=== PATIENT | male | born 1940 | race Two or more races ===

== ENCOUNTER 2024-10-26 02:45 | Inpatient (IN) | payer OTHER ==
[~2024-10-26] VITALS: Ht 167.6 cm; Wt 74.6 kg
[2024-10-26 03:10] VITALS: PULSE 107; RESP 14; O2SAT 96
[2024-10-26 03:11] LABS: Basophils # (auto) 0.1 10 ^3/uL (0-0.2); Basophils % (auto) 0.5 % (0.0-2.0); Eosinophils # (auto) 0 10 ^3/uL (0-0.8); Eosinophils % (auto) 0.2 % (0.0-7.0); Hematocrit 31.4 % (41.0-53.0); Hemoglobin 10.6 g/dL (13.5-17.5); Lymphocytes # (auto) 0.4 10 ^3/uL (0.4-5.4); Lymphocytes % (auto) 2.9 % (10.0-50.0); Mean Corpuscular Hemoglobin 31.3 pg (28.0-32.0); Mean Corpuscular Hgb Conc. 33.8 g/dL (32.0-36.0); Mean Corpuscular Volume 92.4 fL (80.0-100.0); Monocytes # (auto) 0.6 10 ^3/uL (0-1.3); Monocytes % (auto) 3.8 % (0.0-12.0); Neutrophils # (auto) 13.7 10 ^3/uL (1.6-8.6); Neutrophils % (auto) 92.6 % (37.0-80.0); Nucleated Red Blood Cells % 0.1 %; Platelet Count (auto) 77 10^3/uL (140-450); Red Cell Distribution Width 16.8 % (11.8-14.3); White Blood Cell 14.8 10^3/uL (4.4-10.8)
[2024-10-26 03:20] LABS: Alanine Aminotransferase 20 U/L (7-40); Anion Gap 10 (5-15); Calcium 9.2 mg/dL (8.7-10.4); Carbon Dioxide 22 mmol/L (20-31); Chloride 104 mmol/L (98-107); Potassium 3.6 mmol/L (3.5-5.1); Sodium 136 mmol/L (136-145)
[2024-10-26 03:21] LABS: Albumin 3.7 g/dL (3.2-4.8); Aspartate Aminotransferase 32 U/L (13-40); BUN/Creatinine Ratio 21.2 (10.0-20.0); Bilirubin, Total 0.9 mg/dL (0.2-1.0); Blood Urea Nitrogen 22 mg/dL (9-23); Total Protein 7.6 g/dL (5.7-8.2)
--- NOTE | 2024-10-26 03:23 | ED.PDOC ---
HPI Comments 84-year-old male who came to ER via EMS for chest pains. Patient does have history of liver cancer. States for the past hour, he has been experiencing sudden onset substernal chest pains, pressure, constant, unprovoked, nonradiating, 10/10 intensity, associated with shortness of breath. Upon arrival noted temperature of 102.1 F, with a blood pressure of 114/48 mmHg and a blood sugar of 127. Patient is saturating 97% on room air Chief Complaint: Chest Pain Time Seen by MD: 03:23 Reviewed Notes: [employer] Official Notes Allergies: Coded Allergies: NO KNOWN ALLERGIES (Unverified , 10/26/24) Information Source: Patient, Emergency Med Personnel Mode of Arrival: EMS Severity: Moderate Timing: Minutes Duration: Since onset Prehospital treatment: 12 Lead EKG, Accucheck Location: Substernal Radiation: No Radiation Quality: Pressure Onset: With Light Exertion Cardiac Risk Factors: HTN PE Risk Factors: None History of: Similar pain in past Associated Signs and Symptoms: SOB Past Medical History PAST MEDICAL HISTORY: Cancer Surgical History: Denies all surgeries Family History Family History: Reviewed,noncontributory to illness Social History Smoker: Non-Smoker Alcohol: Denies ETOH Use Drugs: Denies Drug Use Lives In: Home Constitutional: denies: chills, diaphoresis, fatigue, fever, malaise, sweats, weakness, others EENTM: denies: blurred vision, double vision, ear bleeding, ear discharge, ear drainage, ear pain, ear ringing, eye pain, eye redness, hearing loss, mouth pain, mouth swelling, nasal discharge, nose bleeding, nose congestion, nose pain, photophobia, tearing, throat pain, throat swelling, voice changes, others Respiratory: reports: SOB at rest, shortness of breath; denies: cough, hemoptysis, orthopnea, SOB with excertion, stridor, wheezing, others Cardiovascular: reports: chest pain; denies: dizzy spells, diaphoresis, Dyspnea on exertion, edema, irregular heart beat, left arm pain, lightheadedness, palpitations, PND, syncope, others Gastrointestinal: denies: abdomen distended, abdominal pain, blood streaked bowels, constipated, diarrhea, dysphagia, difficulty swallowing, hematemesis, melena, nausea, poor appetite, poor fluid intake, rectal bleeding, rectal pain, vomiting, others Genitourinary: denies: burning, dysuria, flank pain, frequency, hematuria, incontinence, penile discharge, penile sore, pain, testicle pain, testicle swelling, urgency, others Neurological: denies: dizziness, fainting, headache, left sided numbness, left sided weakness, numbness, paresthesia, pre-existing deficit, right sided numbness, right sided weakness, seizure, speech problems, tingling, tremors, weakness, others Musculoskeletal: denies: back pain, gout, joint pain, joint swelling, muscle pa in, muscle stiffness, neck pain, others Integumetry: denies: bruises, change in color, change in hair/nails, dryness, laceration, lesions, lumps, rash, wounds, others Allergic/Immunocompromised: denies: Difficulty Healing, Frequent Infections, Hives, Itching, others Hematologic/Lymphatic: denies: anemia, blood clots, easy bleeding, easy bruising, swollen glands, others Endocrine: denies: excessive hunger, excessive sweating, excessive thirst, excessive urination, flushing, intolerance to cold, intolerance to heat, unexplained weight gain, unexplained weight loss, others Psychiatric: denies: anxiety, bipolar disorder, depression, hopeless, panic disorder, schizophrenia, sleepless, suicidal, others Physical Exam General Appearance: No Apparent Distress, Normal HEENT: Normal ENT Inspection, Pharynx Normal, TMs Normal Neck: Full Range of Motion, Non-Tender, Normal, Normal Inspection Respiratory: Chest Non-Tender, Lungs Clear, No Accessory Muscle Use, No Respiratory Distress, Normal Breath Sounds Cardiovascular: No Edema, No JVD, No Murmur, No Gallop, Normal Peripheral Pulses, Regular Rate/Rhythm Breast Exam: Deferred Gastrointestinal: No Organomegaly, Non Tender, No Pulsatile Mass, Normal Bowel Sounds, Soft Genitalia: Deferred Pelvic: Deferred Rectal: Deferred Extremities: No calf tenderness, Normal capillary refill, Normal inspection, Normal range of motion, Non-tender, No pedal edema Musculoskeletal : Apperance: Normal Neurologic: Alert, 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 Was a procedure done?: No CP Differential Dx Differential Diagnosis: Angina, Anxiety / Panic Attack Differential Diagnosis: Angina, Chest Wall Pain, Costochondritis, Esophageal reflux/spasm, Gastritis, Myocardial Infarction, Pneumonia X-Ray, Labs, Meds, VS Vital Signs Date Time Temp Pulse Resp B/P (MAP) Pulse Ox O2 Delivery O2 Flow Rate FiO2 10/26/24 04:02 101.5 101.5 10/26/24 03:10 99.8 99.8 10/26/24 02:51 114 10/26/24 02:51 114 10/26/24 02:50 102.1 120 18 114/48 (70) 97 Lab Test 10/26/24 04:15 10/26/24 03:39 10/26/24 02:48 Range/Units Influenza Type A Antigen Pending Influenza Type B Antigen Pending SARS-CoV-2 Antigen (Rapid) Pending Lactic Acid Level Pending Troponin I High Sensitivity Pending 34 </=54 ng/L White Blood Count 14.8 H 4.4-10.8 10^3/uL Red Blood Count 3.40 L 4.5-5.90 10^6/uL Hemoglobin 10.6 L 13.5-17.5 g/dL Hematocrit 31.4 L 41.0-53.0 % Mean Corpuscular Volume 92.4 80.0-100.0 fL Mean Corpuscular Hemoglobin 31.3 28.0-32.0 pg Mean Corpuscular Hemoglobin Concent 33.8 32.0-36.0 g/dL Red Cell Distribution Width 16.8 H 11.8-14.3 % Platelet Count 77 L 140-450 10^3/uL Mean Platelet Volume 9.8 6.9-10.8 fL Neutrophils (%) (Auto) 92.6 H 37.0-80.0 % Lymphocytes (%) (Auto) 2.9 L 10.0-50.0 % Monocytes (%) (Auto) 3.8 0.0-12.0 % Eosinophils (%) (Auto) 0.2 0.0-7.0 % Basophils (%) (Auto) 0.5 0.0-2.0 % Neutrophils # (Auto) 13.7 H 1.6-8.6 10 ^3/uL Lymphocytes # (Auto) 0.4 0.4-5.4 10 ^3/uL Monocytes # (Auto) 0.6 0-1.3 10 ^3/uL Eosinophils # (Auto) 0 0-0.8 10 ^3/uL Basophils # (Auto) 0.1 0-0.2 10 ^3/uL Nucleated Red Blood Cells 0.1 % Prothrombin Time 11.4 9.3-11.8 sec Prothrombin Time INR 1.08 0.9-1.15 Activated Partial Thromboplast Time 25.1 24.5-34.5 SEC Sodium Level 136 136-145 mmol/L Potassium Level 3.6 3.5-5.1 mmol/L Chloride Level 104 98-107 mmol/L Carbon Dioxide Level 22 20-31 mmol/L Anion Gap 10 5-15 Blood Urea Nitrogen 22 9-23 mg/dL Creatinine 1.04 0.700-1.30 mg/dL Glomerular Filtration Rate Calc 70 >90 mL/min BUN/Creatinine Ratio 21.2 H 10.0-20.0 Serum Glucose 112 H 74-106 mg/dL Calcium Level 9.2 8.7-10.4 mg/dL Total Bilirubin 0.9 0.2-1.0 mg/dL Aspartate Amino Transferase (AST) 32 13-40 U/L Alanine Aminotransferase (ALT) 20 7-40 U/L Alkaline Phosphatase 344 H 46-116 U/L B-Type Natriuretic Peptide Pending Total Protein 7.6 5.7-8.2 g/dL Albumin 3.7 3.2-4.8 g/dL Time of 1ST Reevaluation: 03:20 Reevaluation 1ST: Unchanged Time of 2ND Reevaluation: 04:23 Reevaluation 2ND: Unchanged Patient Education/Counseling: Diagnosis, Treatment Family Education/Counseling: No Family Present Departure 1 Departure Time of Disposition: 04:23 Impression: Primary Impression: Pneumonia Additional Impression: Intermediate coronary syndrome Disposition: 09 ADMITTED INPATIENT Admit to: Med Surg Condition: Guarded Critical Care Note Critical Care Time?: Yes (35 min-critical care time only) Stability Stability form required: No Heart Score Heart Score: Heart Score Response (Comments) Value History Moderate Suspicious 1 EKG Normal 0 Age >65 2 Risk Factors 1 or 2 risk factors 1 Troponin Normal limit 0 Total 4 I personally scribed for OBEY CORREA MD ([email or web address]) on 10/26/24 at 03:23. Electronically submitted by Isaiah Hansen ([email or web address]). OBEY CORREA MD Oct 26, 2024 03:23
[2024-10-26 03:35] LABS: INR 1.08 (0.9-1.15); Partial Thromboplastin Time 25.1 SEC (24.5-34.5); Prothrombin Time 11.4 sec (9.3-11.8)
[2024-10-26 03:47] LABS: Alkaline Phosphatase 344 U/L (46-116); Glucose 112 mg/dL (74-106)
--- NOTE | 2024-10-26 04:24 | DVH ---
CHEST RADIOGRAPH Indication: fever, chest pain Technique: Single frontal view of the chest was obtained Comparison: None IMPRESSION: There are low lung volumes. Coarsened interstitial markings. Possible patchy airspace opacity in the right lower lung. No discrete pneumothorax.
[2024-10-26] MEDS: ACETAMINOPHEN 325 MG TAB PO ONE (05:06)
[2024-10-26] MEDS: cefTRIAXone 1GM/50ML D5W 50 ML IV ONE (05:07)
[2024-10-26 05:20] LABS: Rapid Influenza A Negative (Negative); Rapid Influenza B Negative (Negative)
[2024-10-26] MEDS: ASPirin 81 mg TAB PO ONE (05:26)
[2024-10-26 05:34] LABS: COVID19 ANTIGEN SOFIA FIA POSITIVE (NEGATIVE)
[2024-10-26] MEDS: AZITHROMYCIN 500MG/ 250ML 250 ML IV ONE ×2 (06:20→13:40)
[2024-10-26] MEDS: SODIUM CHLORIDE 0.9% 1,900 ML IV ONE ×2 (06:45→10:26)
[2024-10-26 07:33] LABS: Hematocrit 25.8 % (41.0-53.0); Hemoglobin 8.8 g/dL (13.5-17.5); Mean Corpuscular Hemoglobin 32.1 pg (28.0-32.0); Mean Corpuscular Hgb Conc. 34.1 g/dL (32.0-36.0); Mean Corpuscular Volume 94.2 fL (80.0-100.0); Platelet Count (auto) 67 10^3/uL (140-450); Red Blood Cells 2.74 10^6/uL (4.5-5.90); Red Cell Distribution Width 16.9 % (11.8-14.3); White Blood Cell 15.1 10^3/uL (4.4-10.8)
[2024-10-26] MEDS: ALBUTEROL SULF 2.5 MG/0.5ML(0.5%) NEB SOLN NEB ONE (07:35)
[2024-10-26 07:42] LABS: Alanine Aminotransferase 19 U/L (7-40); Anion Gap 11 (5-15); Aspartate Aminotransferase 39 U/L (13-40); BUN/Creatinine Ratio 19.8 (10.0-20.0); Carbon Dioxide 20 mmol/L (20-31); Chloride 105 mmol/L (98-107); Glucose 89 mg/dL (74-106)
[2024-10-26 07:43] LABS: Bilirubin, Total 0.8 mg/dL (0.2-1.0); Total Protein 6.4 g/dL (5.7-8.2)
[2024-10-26 07:51] LABS: Albumin 3.1 g/dL (3.2-4.8); Alkaline Phosphatase 300 U/L (46-116); Blood Urea Nitrogen 26 mg/dL (9-23); Calcium 8.7 mg/dL (8.7-10.4); Potassium 3.3 mmol/L (3.5-5.1); Sodium 136 mmol/L (136-145)
[2024-10-26 07:55] LABS: Lactic Acid w/Reflex 2.9 mmol/L (0.4-2.0)
[2024-10-26] MEDS: VANCOMYCIN 1GM/250ML KIT 250 ML IV ONE (07:55)
[2024-10-26 08:14] LABS: Basophils % (manual) 0 (0.0-2.0); Blast Cells 0; Metamyelocytes % 0; Myelocytes % 0; Promyelocytes % 0; Reactive Lymphocytes 0
[2024-10-26 08:50] LABS: Band Neutrophils % (manual) 2; Eosinophils % (manual) 1 (0-7); Lymphocytes % (manual) 6 (10.0-50.0); Monocytes % (manual) 10 (0-12); Platelet Estimate Decreased
[2024-10-26 09:53] LABS: Lactic Acid w/Reflex 3.8 mmol/L (0.4-2.0)
[2024-10-26] MEDS: PIPERACILLIN-TAZOB 3.375GM 100 ML IV ONE (10:20)
[2024-10-26] MEDS: NOREPINEPHRINE 8 MG/250ML KIT 250 ML IV SCH (11:21)
[2024-10-26 11:50] LABS: Urine Bacteria None Seen /hpf (None Seen)
[2024-10-26 11:53] VITALS: PULSE 83; RESP 20; O2SAT 98
[2024-10-26 12:10] LABS: Urine Blood Negative /uL (Negative); Urine Clarity Clear (Clear); Urine Color Light-Yellow (Yellow); Urine Protein, UAD Negative (Negative); Urine Urobilinogen Normal (Negative); Urine WBC <1 /hpf (0 - 3)
[2024-10-26] MEDS ORDERED: NITROGLYCERIN 0.4 MG SL TAB SL PRN (13:15)
[2024-10-26] MEDS ORDERED: ONDANSETRON HCL 4 MG/2 ML VIAL IV PRN (13:15)
[2024-10-26] MEDS ORDERED: REMDESIVIR PER PHARMACY 0 ML IV SCH (13:30)
--- NOTE | 2024-10-26 13:37 | DVHHP2 ---
History of Present Illness History of Present Illness 84-year-old male PMH of 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 Patient had sudden onset right upper quadrant/right lower ribs pain, associated with shortness of Breath and subjective fevers. Denies sick contacts. He had chemo 3 months ago and was told by oncologist in [place] region that the cancer is very advanced. Unable to elicit from family what the plan is with the treatment, and they also want full code. In ED, Upon arrival noted temperature of 102.1 F, with a blood pressure of 114/48 mmHg and a blood sugar of 127. Patient is saturating 97% on room air. Patient is hypotensive and multiple attempts with sepsis fluids unable to normalize pressure. Levophed started. No sternal chest pain, nausea and vomiting, diarrhea, constipation, shortness of breath. Review of Systems Review of Systems As per HPI Allergies: Coded Allergies: NO KNOWN ALLERGIES (Unverified , 10/26/24) Medications Current Medications Medications Dose Ordered Sig/Liat Route Start Time Stop Time Status Last Admin Dose Admin Norepinephrine Bitartrate 250 ml @ 3.75 mls/hr Q24H IV 10/26/24 10:00 10/26/24 11:21 3.75 MLS/HR Acetaminophen/ Hydrocodone Bitart 1 tab Q4HP PRN PO 10/26/24 13:15 UNV Ondansetron HCl 4 mg Q4HP PRN IV 10/26/24 13:15 UNV Acetaminophen 650 mg Q6HP PRN PO 10/26/24 13:15 UNV Nitroglycerin 0.4 mg Q5MINP PRN SL 10/26/24 13:15 UNV Cefepime HCl 50 ml @ 12.5 mls/hr Q8HR IV 10/26/24 14:00 UNV Metronidazole 500 mg Q8HR PO 10/26/24 14:00 UNV Azithromycin 250 ml @ 125 mls/hr DAILY IV 10/27/24 10:00 UNV Hydrocortisone Sodium Succinate 100 mg Q12HR IV 10/26/24 22:00 UNV Exam Vital Signs Vital Signs Date Time Temp Pulse Resp B/P (MAP) Pulse Ox O2 Delivery O2 Flow Rate FiO2 10/26/24 12:35 88/31 10/26/24 12:00 81 10/26/24 12:00 20 97 12/22/24 11:53 Room Air* 0 21 10/26/24 08:00 97.8 97.8 Exam GEN: Healthy appearing, well-developed, NAD. HEENT: NC/AT; dry mucous membranes CV: RRR, no m/r/g. LUNGS: Bibasilar rales ABD: Epigastric/RUQ pain tender to palpation. Soft, hypoactive bowel sound, no masses or organomegaly. EXT: skin Warm, well perfused. no rashes. No clubbing, cyanosis, or edema. NEURO: Ambulating with no limitations. No focal deficits. Labs/Xrays Labs Test 10/26/24 11:35 10/26/24 10:37 10/26/24 06:57 10/26/24 04:15 Range/Units Urine Color Light-yellow Yellow Urine Clarity Clear Clear Urine pH 6.0 5.0-9.0 Urine Specific [place] 1.010 1.001-1.035 Urine Protein Negative Negative Urine Ketones Negative Negative Urine Blood Negative Negative /uL Urine Nitrite Negative Negative Urine Bilirubin Negative Negative Urine Urobilinogen Normal Negative mg/dL Urine Leukocyte Esterase Negative Negative /uL Urine RBC 1 0 - 3 /hpf Urine WBC <1 0 - 3 /hpf Urine Squamous Epithelial Cells None seen <5 /hpf Urine Bacteria None seen None Seen /hpf Urine Glucose Normal Normal mg/dL Lactic Acid Level 4.0 *H 0.4-2.0 mmol/L White Blood Count 15.1 H 4.4-10.8 10^3/uL Red Blood Count 2.74 L 4.5-5.90 10^6/uL Hemoglobin 8.8 #L 13.5-17.5 g/dL Hematocrit 25.8 #L 41.0-53.0 % Mean Corpuscular Volume 94.2 80.0-100.0 fL Mean Corpuscular Hemoglobin 32.1 H 28.0-32.0 pg Mean Corpuscular Hemoglobin Concent 34.1 32.0-36.0 g/dL Red Cell Distribution Width 16.9 H 11.8-14.3 % Platelet Count 67 L 140-450 10^3/uL Mean Platelet Volume 9.5 6.9-10.8 fL Neutrophils (%) (Auto) 37.0-80.0 % Lymphocytes (%) (Auto) 10.0-50.0 % Monocytes (%) (Auto) 0.0-12.0 % Basophils (%) (Auto) 0.0-2.0 % Neutrophils # (Auto) 1.6-8.6 10 ^3/uL Lymphocytes # (Auto) 0.4-5.4 10 ^3/uL Monocytes # (Auto) 0-1.3 10 ^3/uL Differential Total Cells Counted 100.0 100 Neutrophils % (Manual) 81 H 37.0-80.0 Band Neutrophils % (Manual) 2 Lymphocytes % (Manual) 6 L 10.0-50.0 Monocytes % (Manual) 10 0-12 Eosinophils % (Manual) 1 0-7 Basophils % (Manual) 0 0.0-2.0 Metamyelocytes % (manual) 0 Myelocytes % (Manual) 0 Promyelocytes % (Manual) 0 Blast Cells % (Manual) 0 Reactive Lymphocytes 0 Platelet Estimate Decreased Sodium Level 136 136-145 mmol/L Potassium Level 3.3 L 3.5-5.1 mmol/L Chloride Level 105 98-107 mmol/L Carbon Dioxide Level 20 20-31 mmol/L Anion Gap 11 5-15 Blood Urea Nitrogen 26 H 9-23 mg/dL Creatinine 1.31 H 0.700-1.30 mg/dL Glomerular Filtration Rate Calc 53 >90 mL/min BUN/Creatinine Ratio 19.8 10.0-20.0 Serum Glucose 89 74-106 mg/dL Calcium Level 8.7 8.7-10.4 mg/dL Total Bilirubin 0.8 0.2-1.0 mg/dL Aspartate Amino Transferase (AST) 39 13-40 U/L Alanine Aminotransferase (ALT) 19 7-40 U/L Alkaline Phosphatase 300 H 46-116 U/L Total Protein 6.4 5.7-8.2 g/dL Albumin 3.1 L 3.2-4.8 g/dL Influenza Type A Antigen Negative Negative Influenza Type B Antigen Negative Negative SARS-CoV-2 Antigen (Rapid) Positive *A NEGATIVE Test 10/26/24 03:39 10/26/24 02:48 Range/Units Troponin I High Sensitivity 33 </=54 ng/L Eosinophils (%) (Auto) 0.2 0.0-7.0 % Eosinophils # (Auto) 0 0-0.8 10 ^3/uL Basophils # (Auto) 0.1 0-0.2 10 ^3/uL Nucleated Red Blood Cells 0.1 % Prothrombin Time 11.4 9.3-11.8 sec Prothrombin Time INR 1.08 0.9-1.15 Activated Partial Thromboplast Time 25.1 24.5-34.5 SEC B-Type Natriuretic Peptide 88.00 0-100 pg/mL Assessment/Plan Assessment/Plan Problem list #Septic shock due to COVID pneumonia- COVID positive, CXR with RLL PNA.- starting on broad-spectrum antibiotics vanc, cefepime, p.o. Flagyl, azithromycin. Status post sepsis fluids. Starting hydrocortisone for shock guidelines. #COVID pneumonia - remdesivir, already on steroids for shock #Leukocytosis, neutrophilia-WBC 15.1 and neutrophils 92% high #Lactic acidosis -lactic 2.9 trend up to 4.0 #Hypoalbuminemia - albumin 3.1 #ROSY due to vmn-creatinine 1.04 trend to 1.31 #Anemia-10.6 trend 8.8 type and screen #Thrombocytopenia-platelets 67 likely to sepsis NEURO: - A&O x3 - RASS score +1 CARDIOVASCULAR: - normal sinus rhythm, hypotensive on Levophed 6 PULMONARY: - On room air, bibasilar rales. - COVID pneumonia, see ID GI: #Hypoalbuminemia - albumin 3.1 /renal #ROSY due to vmn-creatinine 1.04 trend to 1.31 - P.r.n. bladder scan if needed - Accurate I&Os HEME: #Anemia-10.6 trend 8.8 type and screen #Thrombocytopenia-platelets 67 likely to sepsis ENDOCRINE: -No history of diabetes, but currently on Steroids, we will do SSI, Accu-Cheks a.c. HS Metabolic #Hypokalemia, repeat and replete as needed - Lactic acidosis, see ID ID: #Septic shock due to COVID pneumonia- COVID positive, CXR with RLL PNA.- starting on broad-spectrum antibiotics vanc, cefepime, p.o. Flagyl, azithromycin. Status post sepsis fluids. Starting hydrocortisone for shock guidelines. 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 stabilized LINES/DRAINS/ACCESS: - No oxygenation equipment -IV access: See nursing record - On Levophed - Hill catheter: Pending bladder scan Bowel regimen: N/a GI ppx: IV Protonix daily DVT ppx: Holding chemical DVT prophylaxis due to thrombocytopenia, SCDs DIET: Regular diet CODE STATUS: Full code - time spent in advanced care planning was 26 mins Critical Care time >35min Attempt R IJ CVC failed - unable to threat wire without resistance Disposition: Critical care ICU Plan discussed with: Patient My Orders Orders - THEO PEPE MD Procedure Category Date Status Time Admit ADMIT 10/26/24 Transmitted 13:01 Code Status CODE 10/26/24 Transmitted 13:01 Hydrocodone-Acet PHA 10/26/24 Logged 5/325mg Tab ([place] 13:15 Ondansetron Hcl PHA 10/26/24 Logged (Zofran) 13:15 Complete Blood Count LAB 10/27/24 Verified 04:00 Comprehensive LAB 10/27/24 Verified Metabolic Panel 04:00 Acetaminophen Tablet PHA 10/26/24 Logged (Tylenol Tablet) 13:15 Maintain Bed Rest [facility] 10/26/24 In Process 13:01 Sequential [facility] 10/26/24 In Process Compression Device Nitroglycerin [facility] 10/26/24 Logged Sublingual (Ntrostat 13:15 Stat Ekg For Chest [facility] 10/26/24 In Process Pain 13:01 Notify Of Changes [facility] 10/26/24 In Process From Base 13:01 Belt Buckle Maker For [facility] 10/26/24 In Process 24 Hours 13:01 Emergency Dysrhythmia [facility] 10/26/24 In Process Protocol 13:01 Rhythm Strips Once [facility] 10/26/24 In Process Every Shift 13:01 Oxygen By Nasal RT 10/26/24 Transmitted Cannula 13:01 Vancomycin Per [facility] 10/26/24 In Process Pharmacy Protoc 13:01 Cefepime 1gm/ 50ml [facility] 10/26/24 Logged (Maxipime 1gm/50ml) 14:00 Metronidazole Tablet [facility] 10/26/24 Logged (Flagyl Tablet) 14:00 Azithromycin 500mg/ [facility] 10/27/24 Logged 250ml (Zithromax 50 10:00 Azithromycin 500mg/ PH[facility] 10/26/24 Logged 250ml (Zithromax 50 13:15 Hydrocortisone PHA 10/26/24 Logged Succinate Inj 22:00 Hydrocortisone PHA 10/26/24 Logged Succinate Inj 13:15 Ct Ab Pel Wo Con-No CT 10/26/24 Verified Oral Or Iv 13:13 Date of Service: Oct 26, 2024 Billing Provider: THEO PEPE MD Common Visit Codes: 74659-LESPTOKS CARE-EACH +30MIN Secondary Visit Codes: 95294-[id number] CARE PLAN 30 MINUTES THEO PEPE MD Oct 26, 2024 13:37
[2024-10-26] MEDS: HYDROCORTISONE SOD SUCC 100 MG/2ML INJ VIAL IV ONE (13:38)
[2024-10-26 14:33] LABS: Magnesium 1.7 mg/dL (1.6-2.6)
[2024-10-26 14:41] LABS: Lactic Acid w/Reflex 2.9 mmol/L (0.4-2.0)
[2024-10-26 14:43] LABS: CRP High Sensitivity 7.82 mg/dL (<1.0)
[2024-10-26 15:26] LABS: Thyroid Stimulating Hormone 1.15 uIU/mL (0.55-4.78)
[2024-10-26] MEDS: metroNIDAZOLE 500 MG TAB PO SCH (16:09)
[2024-10-26] MEDS: CEFEPIME 1GM/ 50ML 50 ML IV SCH (16:09)
[2024-10-26] MEDS ORDERED: VANCOMYCIN PER PHARMACY 0 MG IV SCH (16:45)
--- NOTE | 2024-10-26 18:37 | DVH ---
Exam: CT CT AB PEL WO CON-NO ORAL OR IV History: septic shock, abdominal pain, hx panc/liver CA Comparison Study: None available at time of dictation. TECHNIQUE: Multidetector CT of the and pelvis with contrast. Axial, coronal and sagittal multiplanar reformats were obtained from the axial data set by the technologist. Radiation Dose Information: CT Dose: CTDI volume is 11.88 mGy. Dose-length product is 663.95 mGy*cm FINDINGS: Small bilateral pleural effusions with basilar ground-glass opacities and right basilar consolidatio n. Heart size is within normal limits. Multiple partially calcified hepatic lesions are noted largest measuring up to 3 x 5.5 cm within the left hepatic lobe. 2.9 x 2.5 cm hypodense right hepatic lobe lesion which measures as fluid. The gallbladder is not definitely visualized. There appears to be tortuosity of the common bile duct with the common bile duct measuring up to 1.5 cm distally. Spleen, and adrenal glands unremarkable. The pancreas appears unremarkable. Kidneys, ureters and urinary bladder unremarkable. The prostate is not well-visualized. Mild gastric wall thickening. Small bowel loops unremarkable. Appendix is not definitely visualized. Moderate to large amount of fecal material within the colon. 0.5 cm linear density within the transve rse colon. Correlate for ingested material versus possible foreign body. Trace ascites. No evidence of intraperitoneal free air. No evidence of aortic aneurysm. Lres-vd-ogvyalxn atherosclerotic calcification of the aorta and bila teral iliacs. Tiny fat containing umbilical hernia. Small fat containing right ventral upper abdominal hernia with a more inferior small bowel containing hernia with no evidence of obstruction. Small to moderate righ t with small fat containing inguinal hernias. Mild pelvic wall soft tissue edema. Diffuse demineraliz ation with multilevel severe degenerative changes of the lumbar spine. Multilevel anterior bridging o steophytes of the visualized thoracic and lumbar spine. No destructive osseous lesions are noted. IMPRESSION: Small bilateral pleural effusion with bibasilar atelectasis and pneumonia. Trace ascites. 2.9 cm right hepatic lobe cystic lesion with multiple partially calcified hepatic lesions, largest me asuring up to 5.5 cm in maximum diameter. Dilatation of the common bile duct up to 1.5 cm with no choledocholithiasis on CT. No obvious pancre atic head mass and no pancreatic ductal dilatation. Constipation. Appendix is not well-visualized. Without visualization of the appendix, can not exclude acute appendi citis. Mild wall thickening of the stomach. Correlate for gastritis. Right paramedian ventral upper abdominal small hernia containing segment of small bowel without evide nce of obstruction. Additional findings as above.
[2024-10-26] MEDS: REMDESIVIR 200mg in NS 210mL LOADING DOSE ADULT IV ONE (18:52)
[2024-10-26 19:45] VITALS: PULSE 79; RESP 18; O2SAT 97
[2024-10-26] MEDS: ALBUMIN 5% 250 ML IV ONE (21:04)
[2024-10-26] MEDS: HYDROCORTISONE SOD SUCC 100 MG/2ML INJ VIAL IV SCH (22:08)
--- NOTE | 2024-10-27 04:01 | ECG ---
[facility] Test Date: 2024-10-26 Test Time: 02:51:36 Pat Name: EBER EASON Department: ER Room: 0208T Gender: M [employer]: IQRA : 1940 Requested By: OBEY CORREA Order Number: [id number] Reading MD: Aureliano Landry Measurements Intervals [place] Rate: 114 P: 25 HI: 126 QRS: 5 QRSD: 150 T: 26 QT: 337 QTc: 465 Interpretive Statements Sinus tachycardia Right bundle branch block Electronically Signed On 10-28-2024 13:05:49 PST by Aureliano Landry Please click the below link to view image of tracing.
[2024-10-27 07:46] VITALS: RESP 8
[2024-10-27] MEDS: AZITHROMYCIN 500MG/ 250ML 250 ML IV SCH (08:49)
[2024-10-27 08:55] LABS: Basophils # (auto) 0.1 10 ^3/uL (0-0.2); Eosinophils # (auto) 0 10 ^3/uL (0-0.8); Lymphocytes # (auto) 0.6 10 ^3/uL (0.4-5.4); Lymphocytes % (auto) 3.2 % (10.0-50.0); Mean Corpuscular Volume 94.6 fL (80.0-100.0); Platelet Count (auto) 53 10^3/uL (140-450)
[2024-10-27 08:59] LABS: Basophils % (auto) 0.3 % (0.0-2.0); Eosinophils % (auto) 0.2 % (0.0-7.0); Hematocrit 26.5 % (41.0-53.0); Mean Corpuscular Hgb Conc. 33.9 g/dL (32.0-36.0); Monocytes # (auto) 0.5 10 ^3/uL (0-1.3); Monocytes % (auto) 2.8 % (0.0-12.0); Neutrophils % (auto) 93.5 % (37.0-80.0); Red Cell Distribution Width 16.7 % (11.8-14.3); White Blood Cell 18.2 10^3/uL (4.4-10.8)
[2024-10-27 09:09] LABS: Alanine Aminotransferase 19 U/L (7-40); Anion Gap 8 (5-15); Aspartate Aminotransferase 23 U/L (13-40); BUN/Creatinine Ratio 27.9 (10.0-20.0); Bilirubin, Total 0.4 mg/dL (0.2-1.0); Calcium 8.9 mg/dL (8.7-10.4); Carbon Dioxide 21 mmol/L (20-31); Sodium 140 mmol/L (136-145)
[2024-10-27 09:10] LABS: Total Protein 5.9 g/dL (5.7-8.2)
[2024-10-27 09:11] LABS: Albumin 2.9 g/dL (3.2-4.8); Alkaline Phosphatase 225 U/L (46-116); Blood Urea Nitrogen 24 mg/dL (9-23); Chloride 111 mmol/L (98-107); Glucose 141 mg/dL (74-106); Potassium 2.7 mmol/L (3.5-5.1)
[2024-10-27] MEDS: ZINC SULFATE 220mg CAP or TAB PO SCH (09:14)
[2024-10-27] MEDS: VANCOMYCIN 500mg/100mL 100 ML IV SCH (10:40)
[2024-10-27] MEDS: SOD CHL 0.9%/ KCL 40MEQ 1,000 ML IV ONE (11:59)
[2024-10-27] MEDS: ACETAMINOPHEN 325 MG TAB PO PRN (12:18)
--- NOTE | 2024-10-27 12:42 | DVHPN2 ---
Subjective Patient reports that his symptoms have improved. Reviewed: Care Plan, H&P, Labs, Medications Changes from previous H/P or p: No Changes General: Per HPI Objective Vitals Vital Signs Date Time Temp Pulse Resp B/P (MAP) Pulse Ox O2 Delivery O2 Flow Rate FiO2 10/27/24 12:11 82 10/27/24 11:00 18 101/42 (61) 97 10/27/24 08:00 97.9 97.9 10/27/24 07:46 Room Air* 0 21 Intake/Output Intake and Output 10/27/24 07:00 Intake Total 5286.875 ml Balance 5286.875 ml Intake IV Total 5286.875 ml General Appearance: Alert, Oriented X3, Cooperative, mild distress HEENT: Atraumatic, PERRLA Lungs: Clear to auscultation, Normal air movement Cardiovascular: Normal S1, Normal S2 Musculoskeletal: Normal sensory function, Normal motor function Neuro: Normal gait, Normal speech Psych/Mental Status: Mental status NL, Mood NL Medications Current Medications Medications Dose Ordered Sig/Liat Route Start Time Stop Time Status Last Admin Dose Admin Norepinephrine Bitartrate 250 ml @ 3.75 mls/hr Q24H IV 10/26/24 10:00 10/26/24 11:21 3.75 MLS/HR Acetaminophen/ Hydrocodone Bitart 1 tab Q4HP PRN PO 10/26/24 13:15 Ondansetron HCl 4 mg Q4HP PRN IV 10/26/24 13:15 Acetaminophen 650 mg Q6HP PRN PO 10/26/24 13:15 10/27/24 12:18 650 MG Nitroglycerin 0.4 mg Q5MINP PRN SL 10/26/24 13:15 Cefepime HCl 50 ml @ 12.5 mls/hr Q24H IV 10/26/24 14:00 10/26/24 16:09 12.5 MLS/HR Metronidazole 500 mg Q8HR PO 10/26/24 14:00 10/27/24 06:13 500 MG Azithromycin 250 ml @ 125 mls/hr DAILY IV 10/27/24 10:00 10/27/24 08:49 125 MLS/HR Hydrocortisone Sodium Succinate 100 mg Q12HR IV 10/26/24 22:00 10/27/24 09:15 100 MG Zinc Sulfate 220 mg DAILY PO 10/27/24 10:00 10/27/24 09:14 220 MG Remdesivir 0 ml @ 0 mls/hr PER PHARMACY IV 10/26/24 13:30 10/29/24 13:29 Remdesivir 100 mg/ Sodium Chloride 250 ml @ 250 mls/hr DAILY@1500 IV 10/27/24 15:00 10/28/24 15:59 Vancomycin HCl 0 ml @ 0 mls/hr UD IV 10/26/24 16:45 Vancomycin HCl 100 ml @ 200 mls/hr Q12H IV 10/27/24 11:00 10/27/24 10:40 200 MLS/HR Laboratory Results Laboratory Tests 10/27/24 08:42 Chemistry Test 10/26/24 13:51 10/27/24 08:42 Magnesium Level 1.7 mg/dL (1.6-2.6) Albumin 2.9 g/dL (3.2-4.8) L Calcium Level 8.9 mg/dL (8.7-10.4) Total Protein 5.9 g/dL (5.7-8.2) Coagulation Test 10/26/24 13:51 D-Dimer, Quantitative 2.43 mg/L FEU (0.0-0.49) H LFT Test 10/27/24 08:42 Alanine Aminotransferase (ALT) 19 U/L (7-40) Alkaline Phosphatase 225 U/L (46-116) H Aspartate Amino Transferase (AST) 23 U/L (13-40) Total Bilirubin 0.4 mg/dL (0.2-1.0) HgA1c, TSH Test 10/26/24 13:51 Thyroid Stimulating Hormone (TSH) 1.15 uIU/mL (0.55-4.78) Urinalysis Test 10/26/24 11:35 Urine Color Light-yellow (Yellow) Urine Clarity Clear (Clear) Urine pH 6.0 (5.0-9.0) Urine Specific [place] 1.010 (1.001-1.035) Urine Protein Negative (Negative) Urine Ketones Negative (Negative) Urine Blood Negative /uL (Negative) Urine Nitrite Negative (Negative) Urine Bilirubin Negative (Negative) Urine Urobilinogen Normal mg/dL (Negative) Urine Leukocyte Esterase Negative /uL (Negative) Urine RBC 1 /hpf (0 - 3) Urine WBC <1 /hpf (0 - 3) Urine Squamous Epithelial Cells None seen /hpf (<5) Urine Bacteria None seen /hpf (None Seen) Urine Glucose Normal mg/dL (Normal) Microbiology Microbiology Date/Time Source Procedure Growth Status 10/26/24 03:39 Blood Blood Culture - Preliminary NO GROWTH AFTER 24 HOURS OF INCUBATION. Resulted Labs and/or images reviewed: Labs reviewed by me, Image(s) reviewed by me Assessment/Plan Assessment/Plan Impression: -COVID-19 -metastatic pancreatic cancer -hypokalemia -cachexia -probable sepsis -hypoalbuminemia -hypokalemia Plan: -patient off of vasopressor therapy. Patient reports that clinically he is feeling better. Patient on room air. -oxygen saturation 96%. Stop remdesivir, continue steroids -continue antibiotic therapy with Flagyl, vancomycin, cefepime -potassium replacement -gentle IV hydration -long discussion made with the patient and daughter who was bedside. If patient has clinical improvement by tomorrow, plans for discharge with recommendations to follow up with PCP back in the [place] area once he is done visiting in this area. -repeat labs in a.m. -transferred to telemetry Total time spent with patient discussing and formulating plan of care: 35 minutes. This medical document was created using an electronic medical record system with [employer] dictation system. Although this document has been carefully reviewed, there may still be some phonetic and typographical errors. These areas are purely typographical due to imperfections of the software programs, and do not reflect any compromise in the patient's medical care. Plan discussed with: Patient, Other (RN) My Orders Orders - COURTNEY RIVERA NP Procedure Category Date Status Time Sod Chl 0.9%/ Kcl PHA 10/27/24 In Process 40meq 12:00 Transfer Orders XFER 10/27/24 Transmitted 12:19 Date of Service: Oct 27, 2024 Billing Provider: COURTNEY RIVERA NP Common Visit Codes: [id number] INP/OBS CARE(HIGH) COURTNEY RIVERA NP Oct 27, 2024 12:42
--- NOTE | 2024-10-27 13:59 | DVH ---
Bilateral lower extremity venous Doppler INDICATION: DVT TECHNIQUE: Duplex venous sonography was performed with real-time and flow sensitive images submitted for evaluation. FINDINGS: Normal phasic venous flow. Veins are fully compressible. No filling defects. IMPRESSION: 1. No evidence of deep vein thrombosis. 2. Incidental note made of a complex Leonard's cyst in the right popliteal fossa measuring 2.4 x 2 x 1 cm
[2024-10-27] MEDS ORDERED: REMDESIVIR 100mg in NS 230mL (3 DAY REGIMEN) IV SCH (15:00)
[2024-10-27 17:50] VITALS: BP 107/66; PULSE 97; RESP 18; TEMP 97.6; O2SAT 96
[2024-10-27 20:00] VITALS: PULSE 83; O2SAT 97
[2024-10-27 21:00] VITALS: BP 92/45; PULSE 74; RESP 17; TEMP 98.5; O2SAT 97
[2024-10-28] VITALS (8 sets, daily range): BP systolic 96–120; BP diastolic 45–77; PULSE 69–86; RESP 15–18; TEMP 97.3–98.3; O2SAT 97–99
[2024-10-28 06:17] LABS: Sodium 139 mmol/L (136-145)
[2024-10-28 06:18] LABS: Anion Gap 7 (5-15); Calcium 9.1 mg/dL (8.7-10.4); Carbon Dioxide 21 mmol/L (20-31)
[2024-10-28 06:23] LABS: BUN/Creatinine Ratio 28.4 (10.0-20.0); Blood Urea Nitrogen 23 mg/dL (9-23)
[2024-10-28 06:24] LABS: Magnesium 1.7 mg/dL (1.6-2.6)
[2024-10-28 06:26] LABS: Chloride 111 mmol/L (98-107); Glucose 132 mg/dL (74-106); Potassium 3.1 mmol/L (3.5-5.1)
[2024-10-28] MEDS ORDERED: MIRA50TA PO (11:21)
[2024-10-28] MEDS ORDERED: SIME80CH49 PO (11:23)
[2024-10-28] MEDS ORDERED: PROC10TA6 PO (11:23)
[2024-10-28] MEDS ORDERED: OMEP20TA PO (11:23)
[2024-10-28] MEDS ORDERED: ACET120S38 PO (11:25)
[2024-10-29] VITALS (7 sets, daily range): BP systolic 90–113; BP diastolic 42–57; PULSE 73–77; RESP 15–20; TEMP 97.6–97.8; O2SAT 95–99
[2024-10-29 07:21] LABS: Anion Gap 8 (5-15); Sodium 139 mmol/L (136-145)
[2024-10-29 07:26] LABS: BUN/Creatinine Ratio 27.3 (10.0-20.0)
[2024-10-29 07:27] LABS: Blood Urea Nitrogen 24 mg/dL (9-23); Calcium 7.3 mg/dL (8.7-10.4); Carbon Dioxide 20 mmol/L (20-31); Chloride 111 mmol/L (98-107); Glucose 157 mg/dL (74-106); Potassium 2.9 mmol/L (3.5-5.1)
[2024-10-29] MEDS: POTASSIUM CHL 20MEQ/100ML 100 ML IV SCH (12:14)
[2024-10-29] MEDS: HYDROcodone-ACET 5/325MG TAB PO PRN (15:18)
[2024-10-29 15:47] LABS: Sodium 140 mmol/L (136-145)
[2024-10-29 15:48] LABS: Anion Gap 8 (5-15); Carbon Dioxide 22 mmol/L (20-31)
[2024-10-29 15:49] LABS: Calcium 8.9 mg/dL (8.7-10.4)
[2024-10-29 15:54] LABS: BUN/Creatinine Ratio 27.8 (10.0-20.0)
[2024-10-29 15:57] LABS: Blood Urea Nitrogen 25 mg/dL (9-23); Chloride 110 mmol/L (98-107); Glucose 137 mg/dL (74-106); Potassium 3.3 mmol/L (3.5-5.1)
--- NOTE | 2024-10-29 19:03 | DVHPN2 ---
Subjective on room air, stable, persistent hypokalemia, will pend today discharge and replete aggresively Reviewed: Care Plan, H&P, Labs, Medications Changes from previous H/P or p: No Changes General: Per HPI Objective Vitals Vital Signs Date Time Temp Pulse Resp B/P (MAP) Pulse Ox O2 Delivery O2 Flow Rate FiO2 10/29/24 17:00 97.7 73 18 111/57 (75) 99 97.7 10/29/24 08:00 Room Air* 0 21 Intake/Output Intake and Output 10/29/24 03:59 Intake Total 2272 ml Output Total 302 ml Balance 1970 ml Intake Oral 2022 ml IV Total 250 ml Output Urine Total 300 ml Stool Total 2 ml # Voids 1 General Appearance: Alert, Oriented X3, Cooperative, mild distress HEENT: Atraumatic, PERRLA Lungs: Clear to auscultation, Normal air movement Cardiovascular: Normal S1, Normal S2 Musculoskeletal: Normal sensory function, Normal motor function Neuro: Normal gait, Normal speech Psych/Mental Status: Mental status NL, Mood NL Medications Current Medications Medications Dose Ordered Sig/Liat Route Start Time Stop Time Status Last Admin Dose Admin Acetaminophen/ Hydrocodone Bitart 1 tab Q4HP PRN PO 10/26/24 13:15 10/29/24 15:18 1 TAB Ondansetron HCl 4 mg Q4HP PRN IV 10/26/24 13:15 Acetaminophen 650 mg Q6HP PRN PO 10/26/24 13:15 10/29/24 13:06 650 MG Nitroglycerin 0.4 mg Q5MINP PRN SL 10/26/24 13:15 Cefepime HCl 50 ml @ 12.5 mls/hr Q24H IV 10/26/24 14:00 10/29/24 14:55 12.5 MLS/HR Metronidazole 500 mg Q8HR PO 10/26/24 14:00 10/29/24 14:42 500 MG Hydrocortisone Sodium Succinate 100 mg Q12HR IV 10/26/24 22:00 10/29/24 10:43 100 MG Zinc Sulfate 220 mg DAILY PO 10/27/24 10:00 10/29/24 10:43 220 MG Vancomycin HCl 0 ml @ 0 mls/hr UD IV 10/26/24 16:45 Laboratory Results Laboratory Tests 10/27/24 08:42 10/29/24 15:03 Chemistry Test 10/29/24 06:46 10/29/24 15:03 Calcium Level 7.3 mg/dL (8.7-10.4) L 8.9 mg/dL (8.7-10.4) Urinalysis Test 10/26/24 11:35 Urine Color Light-yellow (Yellow) Urine Clarity Clear (Clear) Urine pH 6.0 (5.0-9.0) Urine Specific [place] 1.010 (1.001-1.035) Urine Protein Negative (Negative) Urine Ketones Negative (Negative) Urine Blood Negative /uL (Negative) Urine Nitrite Negative (Negative) Urine Bilirubin Negative (Negative) Urine Urobilinogen Normal mg/dL (Negative) Urine Leukocyte Esterase Negative /uL (Negative) Urine RBC 1 /hpf (0 - 3) Urine WBC <1 /hpf (0 - 3) Urine Squamous Epithelial Cells None seen /hpf (<5) Urine Bacteria None seen /hpf (None Seen) Urine Glucose Normal mg/dL (Normal) Microbiology Microbiology Date/Time Source Procedure Growth Status 10/26/24 03:39 Blood Blood Culture - Preliminary NO GROWTH AFTER 72 HOURS OF INCUBATION. Resulted Assessment/Plan Assessment/Plan Impression: -COVID-19 -metastatic pancreatic cancer -hypokalemia -cachexia -probable sepsis -hypoalbuminemia -hypokalemia urinary retention likely BPH Plan: -patient off of vasopressor therapy. Patient reports that clinically he is feeling better. Patient on room air. -oxygen saturation 96%. Stop remdesivir, continue steroids -continue antibiotic therapy with Flagyl, vancomycin, cefepime -potassium replacement -gentle IV hydration -long discussion made with the patient and daughter who was bedside. If patient has clinical improvement by tomorrow, plans for discharge with recommendations to follow up with PCP back in the [place] area once he is done visiting in this area. unable to place neely, add flomax, bladerscan tomorrow -hold dc persistent hypokalemia despite aggresive therapy, will replete further, will discharge tomorrow with po K until follow up Plan discussed with: Daughter Date of Service: Oct 29, 2024 Billing Provider: SHELDON SELBY MD Common Visit Codes: [id number] INP/OBS CARE(MOD) SHELDON SELBY MD Oct 29, 2024 19:03
[2024-10-29] MEDS: TAMSULOSIN HYDROCHLORIDE 0.4 MG CAP PO ONE (19:45)
[2024-10-29] MEDS: POTASSIUM EFFERVESENT TAB 25 MEQ PO ONE (19:45)
[2024-10-29] MEDS ORDERED: VANCOMYCIN 1GM/250ML KIT 250 ML IV ONE (20:30)
[2024-10-29] MEDS: VANCOMYCIN 500mg/100mL 100 ML IV ONE (20:40)
[2024-10-30 01:34] VITALS: BP 100/49; PULSE 72; RESP 15; TEMP 97.5; O2SAT 96
[2024-10-30 05:00] VITALS: BP 120/47; PULSE 72; RESP 15; TEMP 97.8; O2SAT 98
[2024-10-30 07:46] LABS: Anion Gap 8 (5-15); Carbon Dioxide 22 mmol/L (20-31); Sodium 139 mmol/L (136-145)
[2024-10-30 07:52] LABS: BUN/Creatinine Ratio 30.8 (10.0-20.0)
[2024-10-30 07:56] LABS: Chloride 109 mmol/L (98-107); Glucose 134 mg/dL (74-106); Potassium 3.4 mmol/L (3.5-5.1)
[2024-10-30 07:57] LABS: Blood Urea Nitrogen 24 mg/dL (9-23); Calcium 8.5 mg/dL (8.7-10.4)
[2024-10-30 08:00] VITALS: PULSE 76; PULSE 84; RESP 20; O2SAT 96
[2024-10-30 08:49] VITALS: BP 113/54; PULSE 76; RESP 20; TEMP 97.8; O2SAT 96
[2024-10-30] MEDS ORDERED: POTA8TAB38 PO (10:30)
--- NOTE | 2024-10-30 10:37 | DVHDS2 ---
Discharge Summary Date of Admission Oct 26, 2024 at 13:01 Date of Discharge: Oct 30, 2024 Admitting Diagnosis Septic shock secondary to COVID pneumonia Labs/Diagnostic Data: Laboratory Results Test 10/30/24 05:13 10/28/24 23:00 10/28/24 05:00 10/27/24 08:42 Sodium Level 139 mmol/L (136-145) Potassium Level 3.4 mmol/L (3.5-5.1) Chloride Level 109 mmol/L (98-107) Carbon Dioxide Level 22 mmol/L (20-31) Anion Gap 8 (5-15) Blood Urea Nitrogen 24 mg/dL (9-23) Creatinine 0.78 mg/dL (0.700-1.30) Glomerular Filtration Rate Calc 87 mL/min (>90) BUN/Creatinine Ratio 30.8 (10.0-20.0) Serum Glucose 134 mg/dL (74-106) Calcium Level 8.5 mg/dL (8.7-10.4) Random Vancomycin Level 5.9 ug/mL (5-10) Vancomycin Level Trough 22.0 ug/mL (5-10) Magnesium Level 1.7 mg/dL (1.6-2.6) White Blood Count 18.2 10^3/uL (4.4-10.8) Red Blood Count 2.80 10^6/uL (4.5-5.90) Hemoglobin 9.0 g/dL (13.5-17.5) Hematocrit 26.5 % (41.0-53.0) Mean Corpuscular Volume 94.6 fL (80.0-100.0) Mean Corpuscular Hemoglobin 32.0 pg (28.0-32.0) Mean Corpuscular Hemoglobin Concent 33.9 g/dL (32.0-36.0) Red Cell Distribution Width 16.7 % (11.8-14.3) Platelet Count 53 10^3/uL (140-450) Mean Platelet Volume 10.2 fL (6.9-10.8) Neutrophils (%) (Auto) 93.5 % (37.0-80.0) Lymphocytes (%) (Auto) 3.2 % (10.0-50.0) Monocytes (%) (Auto) 2.8 % (0.0-12.0) Eosinophils (%) (Auto) 0.2 % (0.0-7.0) Basophils (%) (Auto) 0.3 % (0.0-2.0) Neutrophils # (Auto) 17.0 10 ^3/uL (1.6-8.6) Lymphocytes # (Auto) 0.6 10 ^3/uL (0.4-5.4) Monocytes # (Auto) 0.5 10 ^3/uL (0-1.3) Eosinophils # (Auto) 0 10 ^3/uL (0-0.8) Basophils # (Auto) 0.1 10 ^3/uL (0-0.2) Nucleated Red Blood Cells 0.0 % Total Bilirubin 0.4 mg/dL (0.2-1.0) Aspartate Amino Transferase (AST) 23 U/L (13-40) Alanine Aminotransferase (ALT) 19 U/L (7-40) Alkaline Phosphatase 225 U/L (46-116) Total Protein 5.9 g/dL (5.7-8.2) Albumin 2.9 g/dL (3.2-4.8) Test 10/26/24 13:51 10/26/24 11:35 10/26/24 06:57 10/26/24 04:15 D-Dimer, Quantitative 2.43 mg/L FEU (0.0-0.49) Lactic Acid Level 2.9 mmol/L (0.4-2.0) Lactate Dehydrogenase 189 U/L (120-246) C-Reactive Protein High Sensitivity 7.82 mg/dL (<1.0) Thyroid Stimulating Hormone (TSH) 1.15 uIU/mL (0.55-4.78) Urine Color Light-yellow (Yellow) Urine Clarity Clear (Clear) Urine pH 6.0 (5.0-9.0) Urine Specific [place] 1.010 (1.001-1.035) Urine Protein Negative (Negative) Urine Ketones Negative (Negative) Urine Blood Negative /uL (Negative) Urine Nitrite Negative (Negative) Urine Bilirubin Negative (Negative) Urine Urobilinogen Normal mg/dL (Negative) Urine Leukocyte Esterase Negative /uL (Negative) Urine RBC 1 /hpf (0 - 3) Urine WBC <1 /hpf (0 - 3) Urine Squamous Epithelial Cells None seen /hpf (<5) Urine Bacteria None seen /hpf (None Seen) Urine Glucose Normal mg/dL (Normal) Differential Total Cells Counted 100.0 (100) Neutrophils % (Manual) 81 (37.0-80.0) Band Neutrophils % (Manual) 2 Lymphocytes % (Manual) 6 (10.0-50.0) Monocytes % (Manual) 10 (0-12) Eosinophils % (Manual) 1 (0-7) Basophils % (Manual) 0 (0.0-2.0) Metamyelocytes % (manual) 0 Myelocytes % (Manual) 0 Promyelocytes % (Manual) 0 Blast Cells % (Manual) 0 Reactive Lymphocytes 0 Platelet Estimate Decreased Influenza Type A Antigen Negative (Negative) Influenza Type B Antigen Negative (Negative) SARS-CoV-2 Antigen (Rapid) Positive (NEGATIVE) Test 10/26/24 03:39 10/26/24 02:48 Troponin I High Sensitivity 33 ng/L (</=54) Prothrombin Time 11.4 sec (9.3-11.8) Prothrombin Time INR 1.08 (0.9-1.15) Activated Partial Thromboplast Time 25.1 SEC (24.5-34.5) B-Type Natriuretic Peptide 88.00 pg/mL (0-100) Other Laboratory Tests 10/30/24 05:13 10/27/24 08:42 Brief Hx & Hospital Course: History of Present Illness 84-year-old male PMH of 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 Patient had sudden onset right upper quadrant/right lower ribs pain, associated with shortness of Breath and subjective fevers. Denies sick contacts. He had chemo 3 months ago and was told by oncologist in [facility] region that the cancer is very advanced. Unable to elicit from family what the plan is with the treatment, and they also want full code. In ED, Upon arrival noted temperature of 102.1 F, with a blood pressure of 114/48 mmHg and a blood sugar of 127. Patient is saturating 97% on room air. Patient is hypotensive and multiple attempts with sepsis fluids unable to normalize pressure. Levophed started. No sternal chest pain, nausea and vomiting, diarrhea, constipation, shortness of breath. Course of hospitalization: Patient was blood pressure improved with vasopressor therapy stopped. Patient was given adequate IV hydration. Patient remained normotensive during the duration of his hospitalization after his initial hypotensive episode in the emergency room. Patient remained on room air. He was no longer febrile. Patient was continued on IV steroids, with remdesivir not started given the patient continues to require no O2 requirements. Patient was noted to be hypokalemic, and after appropriate repletion, patient will be discharged home today. He was instructed to follow up with his PCP back in the [place] area when he travels back. Discussion was also made with the family who were bedside today. He will be continued on p.o. potassium supplementation with Klor-Con 8 mEq use daily x5 days. He is instructed to continue all of his previous home medications. Physical examination General: Alert and Oriented x3. No acute distress. Well-nourished. Eyes: EOMI. Anicteric. HENT: Moist mucous membranes. Lungs: Clear to auscultation bilaterally. No accessory muscle use. Cardiovascular: Regular rate and rhythm. No murmur. No JVD. Abdomen: Soft, non-tender and non-distended. No palpable masses. Extremities: No edema. Non-tender. Skin: No rashes or lesions. Warm. Neurologic: No focal neurological deficits. CN II-XII grossly intact, but not individually tested. Psychiatric: Cooperative. Appropriate mood and affect. Total time spent with patient discussing and formulating plan of care: 35 minutes. This medical document was created using an electronic medical record system with [employer] dictation system. Although this document has been carefully reviewed, there may still be some phonetic and typographical errors. These areas are purely typographical due to imperfections of the software programs, and do not reflect any compromise in the patient's medical care. Condition at Discharge: Poor Final Diagnosis/Problems List Metastatic pancreatic cancer COVID-19 Secondary Diagnosis: -COVID-19 -metastatic pancreatic cancer -hypokalemia -cachexia -septic shock, resolved -hypoalbuminemia -hypokalemia Discharge Disposition: Home Discharge Instruct/Medications Diet: Regular Activity: No Restrictions, As Tolerated Follow Up/Referral: Follow up with PCP in one week Medications: Klor-Con 8 mEq use once a day x5 days 36 Discharge Statement: "Patient was advised to return to the ER or call 911 if any headaches, dizziness, shortness of breath, chest pain, abdominal pain, bleeding, fevers, or worsening of medical condition. Patient was counseled about treatment plan, medications, possible side effects, patientverbalized understanding. All questions were answered to the best of my ability. This discharge took greater then 30 minutes in planning, reviewing documentation, counseling the patient, and discussing with other team members." ASSESSMENT ASSESSMENT Assessment Metastatic pancreatic cancer COVID-19 Date of Service: Oct 30, 2024 Billing Provider: COURTNEY RIVERA NP Common Visit Codes: [id number] DISCH DAY >30min COURTNEY RIVERA NP Oct 30, 2024 10:37
--- NOTE | 2024-10-30 10:38 | DVHPN2 ---
Subjective Patient reports that his symptoms have improved. Reviewed: Care Plan, H&P, Labs, Medications Changes from previous H/P or p: No Changes General: Per HPI Objective Vitals Vital Signs Date Time Temp Pulse Resp B/P (MAP) Pulse Ox O2 Delivery O2 Flow Rate FiO2 10/30/24 08:49 97.8 76 20 113/54 (73) 96 97.8 10/29/24 19:30 Room Air* 0 21 Intake/Output Intake and Output 10/30/24 07:00 Intake Total 2240 ml Output Total 600 ml Balance 1640 ml Intake Oral 1990 ml IV Total 250 ml Output Urine Total 600 ml General Appearance: Alert, Oriented X3, Cooperative, mild distress HEENT: Atraumatic, PERRLA Lungs: Clear to auscultation, Normal air movement Cardiovascular: Normal S1, Normal S2 Musculoskeletal: Normal sensory function, Normal motor function Neuro: Normal gait, Normal speech Psych/Mental Status: Mental status NL, Mood NL Medications Current Medications Medications Dose Ordered Sig/Liat Route Start Time Stop Time Status Last Admin Dose Admin Acetaminophen/ Hydrocodone Bitart 1 tab Q4HP PRN PO 10/26/24 13:15 10/29/24 15:18 1 TAB Ondansetron HCl 4 mg Q4HP PRN IV 10/26/24 13:15 Acetaminophen 650 mg Q6HP PRN PO 10/26/24 13:15 10/29/24 13:06 650 MG Nitroglycerin 0.4 mg Q5MINP PRN SL 10/26/24 13:15 Cefepime HCl 50 ml @ 12.5 mls/hr Q24H IV 10/26/24 14:00 10/29/24 14:55 12.5 MLS/HR Metronidazole 500 mg Q8HR PO 10/26/24 14:00 10/30/24 05:35 500 MG Hydrocortisone Sodium Succinate 100 mg Q12HR IV 10/26/24 22:00 10/29/24 21:51 100 MG Zinc Sulfate 220 mg DAILY PO 10/27/24 10:00 10/29/24 10:43 220 MG Tamsulosin HCl 0.4 mg QPM PO 10/30/24 18:00 Laboratory Results Laboratory Tests 10/27/24 08:42 10/30/24 05:13 Chemistry Test 10/29/24 15:03 10/30/24 05:13 Calcium Level 8.9 mg/dL (8.7-10.4) 8.5 mg/dL (8.7-10.4) L Urinalysis Test 10/26/24 11:35 Urine Color Light-yellow (Yellow) Urine Clarity Clear (Clear) Urine pH 6.0 (5.0-9.0) Urine Specific [place] 1.010 (1.001-1.035) Urine Protein Negative (Negative) Urine Ketones Negative (Negative) Urine Blood Negative /uL (Negative) Urine Nitrite Negative (Negative) Urine Bilirubin Negative (Negative) Urine Urobilinogen Normal mg/dL (Negative) Urine Leukocyte Esterase Negative /uL (Negative) Urine RBC 1 /hpf (0 - 3) Urine WBC <1 /hpf (0 - 3) Urine Squamous Epithelial Cells None seen /hpf (<5) Urine Bacteria None seen /hpf (None Seen) Urine Glucose Normal mg/dL (Normal) Microbiology Microbiology Date/Time Source Procedure Growth Status 10/26/24 03:39 Blood Blood Culture - Preliminary NO GROWTH AFTER 72 HOURS OF INCUBATION. Resulted Labs and/or images reviewed: Labs reviewed by me, Image(s) reviewed by me Assessment/Plan Assessment/Plan Impression: -COVID-19 -metastatic pancreatic cancer -hypokalemia -cachexia -probable sepsis -hypoalbuminemia -hypokalemia Plan: -patient off of vasopressor therapy. Patient reports that clinically he is feeling better. Patient on room air. -oxygen saturation 96%. Stop remdesivir, continue steroids -continue antibiotic therapy with Flagyl, vancomycin, cefepime -potassium replacement -gentle IV hydration -long discussion made with the patient and daughter who was bedside. If patient has clinical improvement by tomorrow, plans for discharge with recommendations to follow up with PCP back in the [place] area once he is done visiting in this area. -repeat labs in a.m. -transferred to telemetry Total time spent with patient discussing and formulating plan of care: 35 minutes. This medical document was created using an electronic medical record system with [employer] system. Although this document has been carefully reviewed, there may still be some phonetic and typographical errors. These areas are purely typographical due to imperfections of the software programs, and do not reflect any compromise in the patient's medical care. Plan discussed with: Patient, Daughter My Orders Orders - SALBINO,VALDEZ STUDENT LOAN COUNSELOR Procedure Category Date Status Time Discharge DISCHARGE 10/30/24 Transmitted 10:29 Date of Service: Oct 28, 2024 Billing Provider: COURTNEY RIVERA NP Common Visit Codes: [id number] INP/OBS CARE(HIGH) COURTNEY RIVERA NP Oct 30, 2024 10:38
[2024-10-30] MEDS: POTASSIUM EFFERVESENT TAB 25 MEQ PO ONE (11:24)
[2024-10-30 11:49] VITALS: BP 113/54; PULSE 76; RESP 20; TEMP 97.8; O2SAT 96
[2024-10-30] MEDS ORDERED: TAMSULOSIN HYDROCHLORIDE 0.4 MG CAP PO SCH (18:00)
== END 2024-10-30 12:45 | disposition home or self-care (01) | DRG 871 ==
LOC: ER 02:45 → EDBD 02:45 → TELE 13:01 → TELE-CENTR 10-27 16:37
PROVIDERS: ADMIT Student in an Organized Health Care Education/Training Program; ATTEND Nurse Practitioner Acute Care
PROC: XW033E5 Introduction of Remdesivir Anti-infective into Peripheral Vein, Percutaneous Approach, New Technology Group 5 (ICD-10-PCS; principal; 2024-10-26)
DX: A41.89 Other specified sepsis (principal); J12.82 Pneumonia due to coronavirus disease 2019; U07.1 COVID-19; R65.21 Severe sepsis with septic shock; N17.0 Acute kidney failure with tubular necrosis; C25.9 Malignant neoplasm of pancreas, unspecified; E87.20 Acidosis, unspecified; I20.0 Unstable angina; R64 Cachexia; D64.9 Anemia, unspecified; D69.6 Thrombocytopenia, unspecified; E87.6 Hypokalemia; E88.09 Other disorders of plasma-protein metabolism, not elsewhere classified; Z92.21 Personal history of antineoplastic chemotherapy; Z68.26 Body mass index [BMI] 26.0-26.9, adult
CPT/HCPCS: 36415; 71045; 74176; 80048; 80053; 80202; 81001; 82565; 83605; 83615; 83735; 83880; 84443; 84484; 85007; 85025; 85027; 85379; 85610; 85730; 86141; 86850; 86900; 86901; 87040; 87426; 87804; 93005; 93970; 94640; 96361; 96365; 96366; 96367; 99291; G0378; J2543; J3480